=== PATIENT | female | born 1985 | race Caucasian/White ===

== ENCOUNTER 2019-11-05 19:05 | Emergency (ER) | payer OTHER ==
[~2019-11-05] VITALS: Ht 160 cm; Wt 67.1 kg
[2019-11-05 19:06] VITALS: Ht 160 cm; Wt 67.1 kg
[2019-11-05 19:47] LABS: BASOPHIL % 0.8 % (0-2); PLATELET COUNT 204 x10^3mcL (130-400); RED CELL DISTRIBUTION WIDTH 12.5 % (11.5-14.5)
[2019-11-05 19:59] LABS: CALCIUM 8.5 mg/dL (8.5-10.1); CHLORIDE SERUM 106 mmol/L (98-107); GFR1 > 60 mL/min; GLUCOSE SERUM 102 mg/dL (74-106); POTASSIUM SERUM 3.7 mmol/L (3.5-5.1); SODIUM SERUM 141 mmol/L (136-145)
[2019-11-05 20:05] LABS: ALBUMIN 3.7 g/dL (3.4-5.0); ALKALINE PHOSPHATASE 63 U/L (46-116); ALT/SGPT 32 U/L (14-59); AST/SGOT 13 U/L (15-37); BILIRUBIN TOTAL 0.2 mg/dL (0.20-1.00); LIPASE 140 IU/L (73-393)
[2019-11-05 21:17] LABS: TOTAL PROTEIN, SERUM 7.7 g/dL (6.4-8.2)
[2019-11-05 21:29] LABS: microscopic required? NO
[2019-11-05 21:43] LABS: urine erythrocyte NEGATIVE (NEGATIVE)
[2019-11-05 22:36] VITALS: BP 116/75
== END 2019-11-05 22:36 | disposition home or self-care (01) ==
LOC: ED 19:05
PROVIDERS: Emergency Medicine
DX: R10.2 Pelvic and perineal pain (principal); Q03.9 Congenital hydrocephalus, unspecified; Z88.8 Allergy status to other drugs, medicaments and biological substances
CPT/HCPCS: 36415; J1885; Q0092